=== PATIENT | female | born 1950 | race Asian ===

== ENCOUNTER 2017-07-21 05:53 | Inpatient (IN) | payer OTHER ==
[2017-07-19 09:54] VITALS: BP 169/91
[2017-07-19 10:35] LABS: BASOPHILS # (AUTO) 0.02 x10^3/uL (0-0.1); BASOPHILS % (AUTO) 0 % (0-1); EOSINOPHILS # (AUTO) 0.16 x10^3/uL (0-0.4); EOSINOPHILS % (AUTO) 3 % (1-7); LYMPHOCYTES # (AUTO) 2.42 x10^3/uL (1-3.4); LYMPHOCYTES % (AUTO) 43 % (22-44); MD NO; MEAN CORPUSCULAR HEMOGLOBIN 31.3 pg (27.0-34.8); MEAN CORPUSCULAR VOLUME 94.7 fL (80-100); MEAN PLATELET VOLUME 8.8 fL (7.4-10.4); MONOCYTES # (AUTO) 0.52 x10^3/uL (0.2-0.8); MONOCYTES % (AUTO) 9 % (2-9); NEUTROPHILS % (AUTO) 45 % (42-75); PLATELET COUNT 209 x10^3/uL (130-400); RED BLOOD COUNT 4.34 x10^6/uL (3.82-5.3); RED CELL DISTRIBUTION WIDTH 14.1 % (9.6-15.2)
[2017-07-19 10:45] LABS: ALANINE AMINOTRANSFERASE 40 U/L (12-78); ANION GAP 7 mmol/L (5-15); CALCIUM 8.5 mg/dL (8.5-10.1); CHLORIDE 104 mmol/L (98-107); CREATININE 0.87 mg/dL (0.55-1.02)
[2017-07-19 10:47] LABS: ALKALINE PHOSPHATASE 51 U/L (45-117); BILIRUBIN,TOTAL 0.4 mg/dL (0.2-1.0); TOTAL PROTEIN 7.7 g/dL (6.4-8.2)
[~2017-07-21] VITALS: Ht 165.1 cm; Wt 110.0 kg
[~2017-07-21 05:53] MED LIST: ASPI-496 PO; METF10002 PO
[2017-07-21] MEDS ORDERED: GABAPENTIN 300 MG CAPSULE PO ONE (07:00)
[2017-07-21] MEDS ORDERED: ACETAMINOPHEN 500 MG TABLET PO ONE (07:00)
[2017-07-21] MEDS ORDERED: ACETAMINOPHEN 500 MG TABLET ONE (07:04)
[2017-07-21] MEDS ORDERED: GABAPENTIN 300 MG CAPSULE ONE (07:04)
[2017-07-21] MEDS ORDERED: BUPIVACAINE/PF 0.25% ONE (07:26)
[2017-07-21] MEDS ORDERED: INDOCYANINE GREEN 25 MG VIAL ONE (07:27)
[2017-07-21] MEDS ORDERED: NEOSTIGMINE 1 MG/ML, 10ML ONE (07:38)
[2017-07-21] MEDS ORDERED: ONDANSETRON 2MG/ML, 2ML ONE ×2 (07:38→15:23)
[2017-07-21] MEDS ORDERED: DEXAMETHASONE 4 MG/ML, 1ML ONE ×2 (07:38→15:23)
[2017-07-21] MEDS ORDERED: GLYCOPYRROLATE 0.2MG/1ML, 5ML ONE (07:38)
[2017-07-21] MEDS ORDERED: SUCCINYLCHOLINE 20 MG/ML, 10ML ONE (07:38)
[2017-07-21] MEDS ORDERED: CEFAZOLIN 1,000 MG ONE (07:38)
[2017-07-21] MEDS ORDERED: PROPOFOL 10 MG/ML, 20ML ONE ×2 (07:38)
[2017-07-21] MEDS ORDERED: LACTATED RINGERS 1,000 ML IV SCH (07:39)
[2017-07-21] MEDS ORDERED: FENTANYL PF 100 MCG/2ML ONE ×2 (07:46→12:09)
[2017-07-21] MEDS ORDERED: MIDAZOLAM 1 MG/ML, 2ML ONE (07:47)
[2017-07-21] MEDS ORDERED: BUPIVACAINE/PF 0.5% ONE (08:04)
[2017-07-21] MEDS ORDERED: MIDAZOLAM 1 MG/ML, 2ML IV PRN (09:00)
[2017-07-21] MEDS ORDERED: morphine SULFATE 10 MG/ML, 1ML IV PRN (09:00)
[2017-07-21] MEDS ORDERED: KETOROLAC 30 MG/1 ML IV PRN (09:00)
[2017-07-21] MEDS ORDERED: ACETAMINOPHEN 325 MG TABLET PO PRN (09:00)
[2017-07-21] MEDS ORDERED: HYDROmorphone 1 MG/ML, 1ML IV PRN (09:00)
[2017-07-21] MEDS ORDERED: HYDROcodone/APAP 7.5-325MG/15ML UDC PO PRN (09:00)
[2017-07-21] MEDS ORDERED: OXYcodone 5 MG/5 ML ORAL.SOL UDC PO PRN (09:00)
[2017-07-21] MEDS ORDERED: MEPERIDINE/PF 25MG/0.5ML IVPush PRN (09:00)
[2017-07-21] MEDS ORDERED: KETOROLAC 30 MG/1 ML ONE (12:09)
[2017-07-21] MEDS ORDERED: OXYcodone 5 MG/5 ML ORAL.SOL UDC ONE (12:09)
[2017-07-21] MEDS: FENTANYL PF 100 MCG/2ML IV PRN ×2 (12:16→12:54)
[2017-07-21] MEDS ORDERED: morphine SULFATE 10 MG/ML, 1ML ONE (13:04)
[2017-07-21 13:38] VITALS: BP 130/80
[2017-07-21] MEDS ORDERED: OXYcodone IR 5MG TABLET PO PRN (14:00)
[2017-07-21] MEDS ORDERED: LORazepam 2 MG/ML, 1ML IVPush PRN (14:00)
[2017-07-21] MEDS ORDERED: TRAZODONE 50MG TABLET PO PRN (14:00)
[2017-07-21] MEDS ORDERED: HALOPERIDOL 5 MG/ML IVPush PRN (14:00)
[2017-07-21] MEDS ORDERED: CALCIUM CARBONATE 500 MG TAB.CHEW PO PRN (14:00)
[2017-07-21] MEDS ORDERED: ONDANSETRON 2MG/ML, 2ML IV PRN (14:00)
[2017-07-21] MEDS ORDERED: LORazepam 1MG TABLET PO PRN (14:00)
[2017-07-21] MEDS ORDERED: DIPHENHYDRAMINE 50 MG/ML, 1ML IVPush PRN (14:00)
[2017-07-21] MEDS ORDERED: INSULIN ENTER ORDER(S) IF CHECKED MC PRN (14:00)
[2017-07-21] MEDS ORDERED: DEXAMETHASONE 4 MG/ML, 1ML IVPush PRN (14:00)
[2017-07-21] MEDS ORDERED: D5%-0.45NACL+KCL 20MEQ 1,000 ML IV SCH (14:00)
[2017-07-21] MEDS ORDERED: SCOPOLAMINE PATCH, 1.5MG PATCH.TD72 TD PRN (14:00)
[2017-07-21] MEDS ORDERED: DIPHENHYDRAMINE 25 MG CAPSULE PO PRN (14:00)
[2017-07-21] MEDS: PIPERACILLIN/TAZO/PMX 3.375GM 50 ML IV SCH ×2 (15:17→20:56)
[2017-07-21] MEDS: ACETAMINOPHEN 500 MG TABLET PO SCH ×2 (15:17→20:56)
[2017-07-21] MEDS ORDERED: ROCURONIUM 10 MG/ML,10ML ONE (15:23)
[2017-07-21] MEDS ORDERED: CEFOTETAN 2 GM ONE (15:23)
[2017-07-21] MEDS: IBUPROFEN 800 MG TABLET PO SCH ×2 (17:13→20:56)
[2017-07-21] MEDS: INSULIN REGULAR, HUMAN 100 UNIT/ML 3ML VIAL LOW DOSE SS SQ-INSULIN SCH ×2 (17:33→21:02)
[2017-07-21 20:01] VITALS: BP 130/85
[2017-07-22 00:07] VITALS: BP 115/61
[2017-07-22 01:28] VITALS: BP 89/52
[2017-07-22] MEDS: PIPERACILLIN/TAZO/PMX 3.375GM 50 ML IV SCH ×4 (02:54→22:39)
[2017-07-22] MEDS: ACETAMINOPHEN 500 MG TABLET PO SCH ×4 (02:54→22:39)
[2017-07-22 04:49] LABS: BASOPHILS # (AUTO) 0.03 x10^3/uL (0-0.1); BASOPHILS % (AUTO) 0 % (0-1); EOSINOPHILS % (AUTO) 0 % (1-7); LYMPHOCYTES % (AUTO) 17 % (22-44); MD NO; MEAN CORPUSCULAR HEMOGLOBIN 31.3 pg (27.0-34.8); MEAN CORPUSCULAR HGB CONC 33.1 g/dL (32.4-35.8); MEAN CORPUSCULAR VOLUME 94.6 fL (80-100); MEAN PLATELET VOLUME 8.3 fL (7.4-10.4); MONOCYTES # (AUTO) 0.58 x10^3/uL (0.2-0.8); MONOCYTES % (AUTO) 7 % (2-9); NEUTROPHILS # (AUTO) 6.71 x10^3/uL (1.8-6.8); NEUTROPHILS % (AUTO) 76 % (42-75); PLATELET COUNT 201 x10^3/uL (130-400); RED BLOOD COUNT 3.78 x10^6/uL (3.82-5.3); RED CELL DISTRIBUTION WIDTH 13.8 % (9.6-15.2)
[2017-07-22 05:00] LABS: ANION GAP 8 mmol/L (5-15); CALCIUM 7.6 mg/dL (8.5-10.1); CHLORIDE 104 mmol/L (98-107); CREATININE 1.45 mg/dL (0.55-1.02)
[2017-07-22] MEDS: HEPARIN 5,000 UNITS/ML, 1ML SQ SCH ×3 (06:09→22:40)
[2017-07-22 06:58] VITALS: BP 102/65
[2017-07-22] MEDS: INSULIN REGULAR, HUMAN 100 UNIT/ML 3ML VIAL LOW DOSE SS SQ-INSULIN SCH ×4 (07:19→23:00)
[2017-07-22] MEDS: IBUPROFEN 800 MG TABLET PO SCH ×3 (08:48→22:39)
[2017-07-22 13:32] VITALS: BP 111/68
[2017-07-22 19:38] VITALS: BP 121/70
[2017-07-23 00:30] VITALS: BP 118/68
[2017-07-23] MEDS: PIPERACILLIN/TAZO/PMX 3.375GM 50 ML IV SCH ×4 (04:53→21:29)
[2017-07-23] MEDS: ACETAMINOPHEN 500 MG TABLET PO SCH ×4 (04:53→22:01)
[2017-07-23 04:57] LABS: BASOPHILS # (AUTO) 0.07 x10^3/uL (0-0.1); BASOPHILS % (AUTO) 1 % (0-1); EOSINOPHILS # (AUTO) 0.26 x10^3/uL (0-0.4); EOSINOPHILS % (AUTO) 3 % (1-7); LYMPHOCYTES # (AUTO) 3.06 x10^3/uL (1-3.4); LYMPHOCYTES % (AUTO) 37 % (22-44); MD NO; MEAN CORPUSCULAR HEMOGLOBIN 31.4 pg (27.0-34.8); MEAN CORPUSCULAR HGB CONC 33.3 g/dL (32.4-35.8); MEAN CORPUSCULAR VOLUME 94.4 fL (80-100); MEAN PLATELET VOLUME 8.2 fL (7.4-10.4); MONOCYTES # (AUTO) 0.36 x10^3/uL (0.2-0.8); MONOCYTES % (AUTO) 4 % (2-9); NEUTROPHILS # (AUTO) 4.49 x10^3/uL (1.8-6.8); NEUTROPHILS % (AUTO) 54 % (42-75); PLATELET COUNT 197 x10^3/uL (130-400); RED BLOOD COUNT 3.62 x10^6/uL (3.82-5.3)
[2017-07-23 05:07] LABS: ANION GAP 7 mmol/L (5-15); CALCIUM 7.9 mg/dL (8.5-10.1); CHLORIDE 107 mmol/L (98-107)
[2017-07-23 05:08] LABS: CREATININE 1.24 mg/dL (0.55-1.02)
[2017-07-23] MEDS: HEPARIN 5,000 UNITS/ML, 1ML SQ SCH ×3 (06:47→23:00)
[2017-07-23] MEDS: INSULIN REGULAR, HUMAN 100 UNIT/ML 3ML VIAL LOW DOSE SS SQ-INSULIN SCH ×4 (07:26→21:58)
[2017-07-23 07:32] VITALS: BP 121/67
[2017-07-23] MEDS: IBUPROFEN 800 MG TABLET PO SCH ×3 (08:50→21:31)
[2017-07-23 13:13] VITALS: BP 136/83
[2017-07-23 20:17] VITALS: BP 153/83
[2017-07-24 02:10] VITALS: BP 174/85
[2017-07-24] MEDS: ACETAMINOPHEN 500 MG TABLET PO SCH ×2 (04:18→10:27)
[2017-07-24] MEDS: PIPERACILLIN/TAZO/PMX 3.375GM 50 ML IV SCH ×2 (04:18→09:39)
[2017-07-24 05:16] LABS: ANION GAP 7 mmol/L (5-15); CALCIUM 8.3 mg/dL (8.5-10.1); CHLORIDE 109 mmol/L (98-107); CREATININE 0.92 mg/dL (0.55-1.02)
[2017-07-24 05:34] LABS: BASOPHILS # (AUTO) 0.03 x10^3/uL (0-0.1); BASOPHILS % (AUTO) 1 % (0-1); EOSINOPHILS # (AUTO) 0.43 x10^3/uL (0-0.4); EOSINOPHILS % (AUTO) 7 % (1-7); LYMPHOCYTES # (AUTO) 2.71 x10^3/uL (1-3.4); LYMPHOCYTES % (AUTO) 44 % (22-44); MD NO; MEAN CORPUSCULAR HGB CONC 32.7 g/dL (32.4-35.8); MEAN CORPUSCULAR VOLUME 94.8 fL (80-100); MEAN PLATELET VOLUME 8.4 fL (7.4-10.4); MONOCYTES # (AUTO) 0.31 x10^3/uL (0.2-0.8); MONOCYTES % (AUTO) 5 % (2-9); NEUTROPHILS # (AUTO) 2.75 x10^3/uL (1.8-6.8); NEUTROPHILS % (AUTO) 44 % (42-75); PLATELET COUNT 223 x10^3/uL (130-400); RED BLOOD COUNT 3.77 x10^6/uL (3.82-5.3); RED CELL DISTRIBUTION WIDTH 13.8 % (9.6-15.2)
[2017-07-24 08:05] VITALS: BP 162/84
[2017-07-24] MEDS: INSULIN REGULAR, HUMAN 100 UNIT/ML 3ML VIAL LOW DOSE SS SQ-INSULIN SCH ×2 (08:25→10:34)
[2017-07-24] MEDS ORDERED: AMOX1TAB64 PO (08:26)
[2017-07-24] MEDS: IBUPROFEN 800 MG TABLET PO SCH (08:26)
[2017-07-24] MEDS ORDERED: OXYC-302 PO (08:26)
[2017-07-24] MEDS ORDERED: ENOX40SY4 SQ (08:26)
[2017-07-24] MEDS: HEPARIN 5,000 UNITS/ML, 1ML SQ SCH (12:59)
[2017-07-24 14:50] VITALS: BP 178/88
== END 2017-07-24 14:50 | disposition home or self-care (01) | DRG 330 ==
LOC: ORIP 05:53 → 4NOR 13:26
PROVIDERS: ADMIT Surgery; ATTEND Surgery
PROC: 8E0W4CZ Robotic Assisted Procedure of Trunk Region, Percutaneous Endoscopic Approach (ICD-10-PCS; 2017-07-21)
PROC: 0DTG4ZZ Resection of Left Large Intestine, Percutaneous Endoscopic Approach (ICD-10-PCS; principal; 2017-07-21 08:00)
DX: C18.6 Malignant neoplasm of descending colon (principal); C77.9 Secondary and unspecified malignant neoplasm of lymph node, unspecified; N17.9 Acute kidney failure, unspecified; E66.01 Morbid (severe) obesity due to excess calories; Z68.41 Body mass index [BMI] 40.0-44.9, adult; M19.90 Unspecified osteoarthritis, unspecified site; E11.9 Type 2 diabetes mellitus without complications; Z79.899 Other long term (current) drug therapy; Z79.82 Long term (current) use of aspirin; Z83.3 Family history of diabetes mellitus
CPT/HCPCS: 36415; 74018; 80048; 80053; 82962; 85025; 86850; 86900; 88309; 93005; C1729; J0690; J1100; J1644; J1815; J1885; J2250; J2405; J2543; J2704; J2710; J3010; J3490; J0330; J3480; J7120; S0074

== ENCOUNTER 2018-09-26 10:25 | Emergency (ER) | payer OTHER ==
[~2018-09-26] VITALS: Ht 162.6 cm; Wt 113.9 kg
[~2018-09-26 10:25] MED LIST changes: +AMOX1TAB64 PO; +ENOX40SY4 SQ; -METF10002 PO; +METF10007 PO; +OXYC-302 PO
--- NOTE | 2018-09-26 11:34 | NUR ---
FROM LOBBY TO ROOM AT THIS TIME
--- NOTE | 2018-09-26 11:40 | NUR ---
PT STATES SHE HAS HAD CHILLS/SWEATS, NOTED EDEMA IN LEGS, ODMINGUEZ AND FEELS SOB WHEN LYING FLAT, THROAT FEELS DRY
--- NOTE | 2018-09-26 12:33 | NUR ---
ULTRASOUND AT BEDSIDE PERFORMING LOWER EXTREMITY VASCULAR STUDY
[2018-09-26 12:42] LABS: BASOPHILS # (AUTO) 0.03 x10^3/uL (0-0.1); BASOPHILS % (AUTO) 1 % (0-1); EOSINOPHILS # (AUTO) 0.37 x10^3/uL (0-0.4); MD NO; MEAN CORPUSCULAR HGB CONC 32.9 g/dL (32.4-35.8); NEUTROPHILS # (AUTO) 3.84 x10^3/uL (1.8-6.8)
[2018-09-26 12:53] LABS: ALANINE AMINOTRANSFERASE 25 U/L (12-78); ALBUMIN 2.7 g/dL (3.4-5.0); ANION GAP 7 mmol/L (5-15); CALCIUM 8.6 mg/dL (8.5-10.1); CHLORIDE 107 mmol/L (98-107); CREATININE 0.98 mg/dL (0.55-1.02)
[2018-09-26 12:58] LABS: ALKALINE PHOSPHATASE 51 U/L (45-117); BILIRUBIN,TOTAL 0.2 mg/dL (0.2-1.0); TOTAL PROTEIN 6.7 g/dL (6.4-8.2); TROPONIN I < 0.015 ng/mL (0.000-0.045)
[2018-09-26 13:02] LABS: EOSINOPHILS % (AUTO) 5 % (1-7); LYMPHOCYTES # (AUTO) 2.34 x10^3/uL (1-3.4); LYMPHOCYTES % (AUTO) 34 % (22-44); MEAN CORPUSCULAR VOLUME 97.5 fL (80-100); MEAN PLATELET VOLUME 7.9 fL (7.4-10.4); MONOCYTES # (AUTO) 0.35 x10^3/uL (0.2-0.8); MONOCYTES % (AUTO) 5 % (2-9); NEUTROPHILS % (AUTO) 56 % (42-75); PLATELET COUNT 245 x10^3/uL (130-400); RED BLOOD COUNT 4.09 x10^6/uL (3.82-5.3); RED CELL DISTRIBUTION WIDTH 14.1 % (9.6-15.2)
--- NOTE | 2018-09-26 13:36 | NUR ---
CONVERSING WITH VISITING DAUGHTERS. AWAITING CTA.
[2018-09-26] MEDS ORDERED: FUROSEMIDE 40 MG/4 ML IV ONE (15:00)
--- NOTE | 2018-09-26 15:06 | NUR ---
AMBULATED TO BATHROOM WITHOUT ASSISTANCE. AWAITING DISPO
[2018-09-26] MEDS ORDERED: FUROSEMIDE 40 MG/4 ML ONE (15:08)
[2018-09-26 15:17] VITALS: BP 155/83
== END 2018-09-26 15:31 | disposition home or self-care (01) ==
LOC: ED 13:59
DX: R60.0 Localized edema (principal); E11.9 Type 2 diabetes mellitus without complications; Z85.038 Personal history of other malignant neoplasm of large intestine
CPT/HCPCS: 36415; 71045; 71275; 80053; 83880; 84484; 85025; 85379; 93005; 93970; 96374; 99284; J1940